=== PATIENT | male | born 1985 | race Hispanic/Latino ===

== ENCOUNTER 2025-10-10 21:30 | Emergency (ER) | payer OTHER ==
[~2025-10-10] VITALS: Ht 180.3 cm; Wt 95.3 kg
--- NOTE | 2025-10-10 23:55 | ERN ---
General Chief Complaint: Laceration/Avulsion Stated Complaint: C/O LACERATION TO HEAD AFTER HITTING WALL. Time Seen by MD: 21:45 Time Seen by Midlevel: 21:45 Source: patient History of Present Illness Initial Comments 72-year-old male [facility] laceration to his scalp. Patient states he accidentally ran into a metal wall. Shortly after the incident he did report some dizziness that has now resolved. Denies any other symptoms at this time. Patient is a up-to-date with tetanus vaccination Allergies: Coded Allergies: No Known Allergies (Unverified Allergy, Unknown, 10/10/25) Past Medical History Past Medical History: No Pertinent History Past Surgical History: Unknown ROS Dictation CONSTITUTIONAL: Negative except for HPI HEAD/FACE: Negative except for HPI EENT: Negative except for HPI RESPIRATORY: Negative except for HPI GASTROINTESTINAL/ABDOMINAL: Negative except for HPI GENITOURINARY: Negative except for HPI MUSCULOSKELETAL: Negative except for HPI INTEGUMENTARY: Negative except for HPI NEUROLOGICAL/PSYCH: Negative except for HPI HEMATOLOGIC/LYMPHATIC: Negative except for HPI All Systems Negative, Except as noted above. 13 point review of systems assessed and all negative except for above. Physical Exam Physical Exam Dictation Vital Signs reviewed General Appearance: Alert, oriented x 3, no acute distress, well developed, nourished. Head and Face: non-traumatic. Eyes: PERRL, pink conjunctivas, eyelid no trauma, anterior chamber with arcus senilis. Ears: Pinnas intact and no signs of trauma or erythema ear canals clear and no discharge TM no erythema Nose: No discharge, no bleeding. Oropharynx: Mouth normal, tongue pink, pharynx clear,no erythema, tonsils no exudates, no abscesses noted, mucous membrane moist Neck: Supple, non-tender, no thyromegaly, no masses, no JVD, no bruits Breast:Deferred Chest:No tenderness, no crepitus, no paradoxical movement, no retractions Lungs:Clear, well-ventilated, symmetric, no rales, no wheezing, no rhonchi, no stridor, good breath sounds bilaterally Heart: Regular rate, regular rhythm, no murmur, no gallops Vascular: no peripheral edema, Abdomen: Soft, positive bowel sounds, nondistended, no guarding, nontender, no rebound, no masses no hepatomegaly, no splenomegaly, no Christine's sign, no hernias. Rectal: Deferred Genital: Deferred Neurological: Normal speech, motor function intact, sensory function intact Musculoskeletal: Neck nontender, full range of motion, back nontender, full ran ge of motion, Extremities: nontender, full range of motion Skin 6 cm linear laceration to the parietal scalp right side Lymphatic: Deferred MDM MDM: Differential diagnosis: Laceration, scalp contusion, intracranial bleed, skull fracture There are no social concerns with this patient. Prescription drug management Prescriptions will include: None Medical management and examination interpretation discussions were had by me with other qualified healthcare professionals as indicated for the patient's care. ED Course Orders Procedure Category Date Status Time Ct Head/Brain W/O CT 10/10/25 Taken Contrast 21:54 Vital Signs Date Time Temp Pulse Resp B/P (MAP) Pulse Ox O2 Delivery O2 Flow Rate FiO2 10/10/25 21:34 98.4 71 20 144/77 98 Room Air Procedure Dictation Procedure Name: Laceration Repair Indication: Reduce risk of infection Location: 6 cm linear laceration to the right parietal scalp Pre-Procedure Diagnosis: Laceration Post-Procedure Diagnosis: Repaired Laceration Informed consent was obtained before procedure started. PROCEDURE: The appropriate timeout was taken. The area was prepped and draped in the usual sterile fashion. The wound was copiously irrigated. Five jovan were placed. Estimated blood loss was less than 0.5 mL. A dressing was applied to the area and anticipatory guidance, as well as standard post-procedure care, was explained. Return precautions are given. The patient tolerated the procedure well without complications. Follow-up visit set for suture removal and evaluation of the laceration. DX & DISP Disposition: Discharge Departure Impression: Primary Impression: Scalp laceration Condition: Stable Additional Instructions: Your laceration was successfully repaired with five jovan. These will need to be removed in 7-10 days. They may remove the jovan in your facility or you may return to the ER for staple removal. If you notice any signs of infection please report to the ER further evaluation. Referrals: SELF,REFERRAL (PCP) Time of Disposition: 23:54 I have reviewed the case, and I agree with, Diagnosis and Plan I performed the substantive portion of the visit. I have reviewed and personall y made and approve the management plan that is documented in the note by myself or the [facility]. I acknowledge for responsibility for the patient's management plan. NERY MONTIEL PAC Oct 10, 2025 23:55
[2025-10-11] MEDS: HYDROcodone/APAP 5/325 1 TAB TABLET PO ONE (00:35)
--- NOTE | 2025-10-11 01:44 | HMCIMG ---
EXAM: Non-contrast CT examination of the Brain CLINICAL HISTORY: Fall. TECHNIQUE: Thin collimated axial CT images of the brain were obtained, with sagittal and coronal reformatted images also submitted. CT scan done according to ALARA (As Low as Reasonably Achievable). CONTRAST USED: None. COMPARISON: None provided. FINDINGS: No acute intracranial abnormality is present. No acute cortical infarction, hemorrhage, mass, or mass effect. No hydrocephalus or abnormal extra-axial fluid collections. The posterior fossa is unremarkable. The skull base and calvarium are intact. Small soft tissue laceration in the high frontal region with a 5 mm hyperdense foreign body versus calcification in the scalp soft tissue. The included portions of the paranasal sinuses and mastoid air cells are clear. IMPRESSION: No acute intracranial abnormality is present. Small soft tissue laceration in the high frontal region with a 5 mm hyperdense foreign body versus calcification in the scalp soft tissue. /[place]ar
[2025-10-11 02:19] VITALS: BP 125/74; PULSE 69; RESP 18; TEMP 98.3; O2SAT 98
== END 2025-10-11 02:24 ==
LOC: EDH 21:30 → EEVIPCON 21:30 → EDH 10-11 02:24
DX: S01.01XA Laceration without foreign body of scalp, initial encounter (principal); W22.01XA Walked into wall, initial encounter; Y93.89 Activity, other specified; Y92.89 Other specified places as the place of occurrence of the external cause; Y99.8 Other external cause status
CPT/HCPCS: 12002; 70450; 99284